=== PATIENT | male | born 1955 ===

== ENCOUNTER 2023-11-01 09:01 | Day surgery (SDC) | payer OTHER ==
[~2023-11-01] VITALS: Ht 180.3 cm; Wt 107.5 kg
[~2023-11-01 09:01] MED LIST: COZAAR100 MG PO; METFORMIN HCL1000 M2 PO; NIFEDIPINE ER60 M1 PO; XARELTO2.5 MG PO
[2023-11-01] MEDS ORDERED: DIBUCAINE 30 GM TUBE ONE (10:43)
[2023-11-01] MEDS ORDERED: POVIDONE-IODINE 118 ML BOTT TOP ONE ×2 (10:43→11:15)
[2023-11-01] MEDS ORDERED: HEMOSTATIC MATRIX 1 KIT KIT TOP ONE ×2 (10:43→11:15)
[2023-11-01] MEDS ORDERED: METRONIDAZOLE/SODIUM CHLORIDE 500 MG/100 ML PIGGYBACK IV ONE ×2 (10:44→11:15)
[2023-11-01] MEDS ORDERED: CEFTRIAXONE SODIUM 2,000 MG VIAL ONE (10:44)
[2023-11-01] MEDS ORDERED: CEFTRIAXONE SODIUM 2,000 MG VIAL IV ONE (11:15)
[2023-11-01] MEDS ORDERED: BUPIVACAINE HCL/PF 0.25% 30ML VIAL InF ONE (11:15)
[2023-11-01] MEDS ORDERED: LIDOCAINE HCL 1%/EPINEPHRINE 20ML VIAL IJ ONE (11:15)
[2023-11-01] MEDS ORDERED: DIBUCAINE 15 GM OINT..GM. TUBE RECTAL ONE (11:15)
== END 2023-11-01 14:55 | disposition home or self-care (01) ==
LOC: CIR.AMB 09:01
PROVIDERS: ATTEND Colon & Rectal Surgery
DX: D12.8 Benign neoplasm of rectum (principal); K64.2 Third degree hemorrhoids; D12.9 Benign neoplasm of anus and anal canal; K64.4 Residual hemorrhoidal skin tags; Z86.010 Personal history of colon polyps; E11.9 Type 2 diabetes mellitus without complications; I10 Essential (primary) hypertension